=== PATIENT | female | born 1955 | race Caucasian/White ===

== ENCOUNTER 2017-07-27 08:30 | Outpatient (CLI) | payer OTHER ==
[2017-07-27 09:12] LABS: #Basophils 0.1 thou/uL (0.0-0.2); #Eosinphils 0.1 thou/uL (0.0-0.7); #Lymphocytes 1.3 thou/uL (1.20-3.40); #Monocytes 0.3 thou/uL (0.11-0.59); #Neutrophils 3.9 thou/uL (1.40-6.50); %Basophils 1.1 % (0.0-1.0); %Eosinophils 1.4 % (0.0-10.0); %Lymphocytes 23.6 % (21.0-51.0); %Monocytes 5.8 % (0.0-10.0); %Neutrophils 68.1 % (42.0-75.0); Hemoglobin 14.2 g/dL (12.0-16.0); Mean Corpuscular HGB CONC 34.3 g/dL (32.0-36.0); Mean Corpuscular Hemoglobin 31.4 pg (27.0-31.0); Mean Corpuscular Volume 91.6 fl (81.0-99.0); Mean Platelet Volume 6.6 fL (7.4-10.4); Platelet Count 287 thou/uL (130-400); RBC Distribution Width 12.1 % (11.5-14.5); Red Blood Cell (RBC) Count 4.53 mill/uL (4.20-5.40); White Blood Cell (WBC) Count 5.7 thou/uL (4.8-10.8)
[2017-07-27 09:24] LABS: Hemoglobin A1c 5.5 % (4.0-6.0)
[2017-07-27 09:26] LABS: ALT (SGPT) 21 U/L (8-55); AST (SGOT) 15 U/L (5-34); Albumin 4.1 g/dL (3.4-4.8); Alkaline Phosphatase 62 U/L (40-150); Anion Gap 15 mmol/L (10-20); BUN (Urea Nitrogen) 8 mg/dL (9.8-20.1); Bilirubin, Total 0.4 mg/dL (0.2-1.2); Calc. Creatinine Clearance 0 mL/min (70-130); Calcium 9.3 mg/dL (7.8-10.44); Carbon Dioxide 25 mmol/L (23-31); Chloride 102 mmol/L (98-107); Cholesterol 186 mg/dl (< 200 Desired); Estimated GFR-MDRD 83; Globulin 3.3 g/dL (2.4-3.5); Glucose 108 mg/dL (80-115); HDL Cholesterol 47 mg/dL (>60 Neg Risk); LDL Cholesterol, Calculated 125 mg/dL; Protein, Total 7.4 g/dL (6.0-8.3); Sodium 138 mmol/L (136-145); Triglycerides 69 mg/dL (Less than 150)
[2017-07-27 09:42] LABS: Free T4 (Free Thyroxine) 0.85 ng/dL (0.70-1.48); Thyroid Stimulating Hormone 1.4458 uIU/mL (0.35-4.94)
--- NOTE | 2017-07-27 10:04 | RAD ---
RIGHT FOOT 3 VIEWS: Date: 07/27/17 HISTORY: Pain. Fall several weeks ago. COMPARISON: None. FINDINGS: There is a healing interarticular fracture of the distal phalanx of the fourth toe. There periosteal new bone formation and sclerosis. There is a bipartite medial hallux sesamoid. Type II os naviculare. IMPRESSION: Healing intra-articular fracture distal phalanx fourth toe with periosteal new bone formation. There is also extensive soft tissue swelling. POS: OFF
== END 2017-07-27 08:31 | disposition home or self-care (01) ==
LOC: MADLAB 08:30
PROVIDERS: ATTEND Family Medicine
DX: M79.89 Other specified soft tissue disorders (principal); E03.9 Hypothyroidism, unspecified; E78.5 Hyperlipidemia, unspecified; S92.531D Displaced fracture of distal phalanx of right lesser toe(s), subsequent encounter for fracture with routine healing
CPT/HCPCS: 36415; 80053; 80061; 83036; 84439; 84443; 85025